=== PATIENT | female | born 1975 | race Caucasian/White ===

== ENCOUNTER 2022-06-12 07:18 | Emergency (ER) | payer BC ==
[~2022-06-12] VITALS: Ht 160 cm; Wt 81.6 kg
[2022-06-12 07:44] LABS: BASOPHILS % (AUTO) 0.1 % (0.0-5.0); EOSINOPHILS % (AUTO) 0.1 % (0.0-8.0); HEMATOCRIT 42.9 % (36-48); LYMPHOCYTES % (AUTO) 6.4 % (21.0-51.0); MEAN CORPUSCULAR HEMOGLOBIN 28.3 pg (27.0-33.0); MEAN CORPUSCULAR HGB CONC 33.8 g/dL (32.0-36.0); MEAN CORPUSCULAR VOLUME 83.8 fL (79-99); NEUTROPHILS % (AUTO) 90.1 % (40.0-77.0); PLATELET COUNT (AUTO) 206 K/uL (130-400); RED BLOOD CELL COUNT(AUTO) 5.12 MIL/uL (4.00-5.50); RED CELL DISTRIBUTION WIDTH 12.8 % (11.0-15.5); WHITE BLOOD COUNT (AUTO) 14.1 K/uL (4.8-10.8)
[2022-06-12 07:46] LABS: APPEARANCE,URINE CLOUDY (CLEAR); BILIRUBIN,URINE NEGATIVE (NEGATIVE); COLOR,URINE YELLOW (YELLOW); GLUCOSE, URINE (UA) NEGATIVE (NEGATIVE); KETONES,URINE >=80 mg/dL (NEGATIVE); LEUKOCYTE ESTERASE ,URINE NEGATIVE (NEGATIVE); NITRATE,URINE NEGATIVE (NEGATIVE); OCCULT BLOOD,URINE NEGATIVE (NEGATIVE); PH,URINE 8.5 (5.0-8.0); PROTEIN,URINE NEGATIVE (NEGATIVE); UROBILINOGEN,URINE 0.2 mg/dL (0.2-1.0)
[2022-06-12 07:52] LABS: AMORPHOUS SEDIMENT,UR Many /LPF (None Seen); BACTERIA,URINE Rare /HPF (None Seen); RBC,URINE 0-1 /HPF (0-1); SQUAMOUS EPITHELIAL CELL,UR Rare /HPF (0-2); WBC,URINE 0-1 /HPF (0-1)
[2022-06-12 07:55] LABS: HCG,QUALITATIVE URINE NEGATIVE (NEGATIVE)
[2022-06-12 08:00] LABS: CREATININE 0.8 mg/dL (0.5-1.5); TOTAL PROTEIN, SERUM 7.7 g/dL (6.0-8.3)
[2022-06-12] MEDS ORDERED: KETOROLAC 30MG VIAL (30MG/ML) ONE (08:22)
[2022-06-12] MEDS ORDERED: PANTOPRAZOLE 40 MG/VIAL IVP ONE (08:30)
[2022-06-12] MEDS ORDERED: KETOROLAC 30MG VIAL (30MG/ML) IVP ONE (08:30)
[2022-06-12] MEDS ORDERED: IOHEXOL 350 MG/ML 100ML INFUS..BTL IV ONE (09:20)
[2022-06-12] MEDS ORDERED: MAG/ALUM/SIMETH 30 ML UDCUP PO ONE (10:30)
[2022-06-12] MEDS ORDERED: LIDOCAINE HCL 2% VISCOUS 15 ML UDCUP PO ONE (10:30)
[2022-06-12] MEDS ORDERED: DICYCLOMINE HCL 10 MG/5 ML ML PO ONE (10:30)
[2022-06-12] MEDS ORDERED: NAPR375T6 PO (10:35)
[2022-06-12] MEDS ORDERED: PANT40TA PO (10:35)
[2022-06-12] MEDS ORDERED: CIPR250S4 PO (10:38)
[2022-06-12 10:49] VITALS: BP 130/69
== END 2022-06-12 10:59 | disposition home or self-care (01) ==
LOC: EDH 07:18
DX: K29.70 Gastritis, unspecified, without bleeding (principal); K76.89 Other specified diseases of liver; K80.50 Calculus of bile duct without cholangitis or cholecystitis without obstruction
CPT/HCPCS: 99285; 74177; 96374; 76705; 96375; 84484; 80053; 83690; 85025; 81001; 81025; 36415; 93005; J1885; C9113; Q9967